=== PATIENT | female | born 1995 | race African-American/Black ===

== ENCOUNTER 2016-07-19 14:11 | Emergency (ER) | payer SELFPAY ==
[~2016-07-19] VITALS: Ht 162.6 cm; Wt 60.0 kg
[2016-07-19 14:12] VITALS: BP 124/73; PULSE 81; RESP 18; TEMP 97.8; O2SAT 100
--- NOTE | 2016-07-19 14:15 | PD ---
Physical Exam Time Seen by Provider: 14:14 Narrative 20 y/o female here because she want to confirm . lmp approximately may 30. She had two +upt at home. Some vomiting this past week. denies abdominal pain, vaginal bleeding/discharge. Vital signs reviewed. Seen at triage desk. awaiting bed placement. Data Data Last Documented VS Vital Signs Date Time Temp Pulse Resp B/P Pulse Ox O2 Delivery O2 Flow Rate FiO2 07/19/16 14:12 97.8 81 18 124/73 100 MDM Medical Record Reviewed: Yes Supervised Visit with GERMAN: Tahir Nelson July 19, 2016 14:15
--- NOTE | 2016-07-19 14:25 | PD ---
HPI Chief Complaint: Related Problem Time Seen by Provider: 14:17 Travel History International Travel<30 days: No Contact w/Intl Traveler<30days: No Traveled to known affect area: No History of Present Illness HPI 20-year-old female here with complaint of possible . LMP was 05/30/16 making her approximately 7 weeks based on LMP. Patient states that she took a test that was positive, she does not want a and wants to terminate the . Presents to the ER for same. No abdominal pain, vaginal bleeding, etc. PFSH Past Medical History Medical History: Denies Significant Hx ?: LMP: may 30 Social History Tobacco Use: No Review of Systems Except as stated in HPI: all other systems reviewed are Neg Physical Exam Narrative GENERAL: Well-appearing female in no acute distress SKIN: Focused skin assessment warm/dry. HEAD: Normocephalic. EYES: . No injection or drainage. ENT: Mucous membranes pink and moist. NECK: Supple CARDIOVASCULAR: Regular rate and rhythm. RESPIRATORY: No accessory muscle use. GASTROINTESTINAL: Abdomen soft, non-tender, nondistended. MUSCULOSKELETAL: Normal gait NEUROLOGICAL: Awake and alert. Normal speech. PSYCHIATRIC: Appropriate mood and affect; insight and judgment normal. Data Data Last Documented VS Vital Signs Date Time Temp Pulse Resp B/P Pulse Ox O2 Delivery O2 Flow Rate FiO2 07/19/16 14:12 97.8 81 18 124/73 100 MDM Medical Decision Making Medical Screen Exam Complete: Yes Emergency Medical Condition: No Medical Record Reviewed: Yes Differential Diagnosis 20-year-old female proximally 7 weeks based on LMP here with request for termination of . No symptoms to suggest ectopic , active miscarriage. Narrative Course Patient does not warrant further workup. [facility] [place] Given outpatient referral for termination of . Diagnosis Primary Impression: Encounter for medical screening examination Disposition: 01 DISCHARGE HOME Condition: Stable Cathi Quinn MD July 19, 2016 14:25
== END 2016-07-19 14:38 | disposition left against medical advice (07) ==
LOC: NEPD 14:11
DX: R68.89 Other general symptoms and signs (principal)
CPT/HCPCS: 99281